=== PATIENT | male | born 1970 | race Asian ===

== ENCOUNTER 2019-06-24 21:34 | Emergency (ER) | payer SELFPAY ==
[~2019-06-24] VITALS: Ht 175.3 cm; Wt 98.6 kg
[2019-06-24] MEDS ORDERED: METF-960 PO (21:45)
[2019-06-24] MEDS ORDERED: SIMV-261 PO (21:45)
[2019-06-24] MEDS ORDERED: LISI-662 PO (21:45)
[2019-06-24 21:52] LABS: GLUCOSE,POINT OF CARE 106 MG/DL (70-110)
[2019-06-24 22:41] LABS: BASOPHILS % (AUTO) 0.3 % (0.0-2.0); EOSINOPHILS % (AUTO) 2.1 % (1.0-6.0); HEMATOCRIT 47.2 % (41-53); HEMOGLOBIN 16.6 g/dL (13.5-17.5); LYMPHOCYTES # (AUTO) 2.5 K/uL (1.0-4.8); MEAN CORPUSCULAR HEMOGLOBIN 30.8 pg (26.0-34.0); MEAN CORPUSCULAR VOLUME 88 fL (80-100); MONOCYTES # (AUTO) 0.8 K/uL (0.1-1.0); MONOCYTES % (AUTO) 7.7 % (2.0-9.0); NEUTROPHILS # (AUTO) 7.3 K/uL (1.8-7.7); NEUTROPHILS % (AUTO) 66.9 % (40.0-70.0); PLATELET COUNT (AUTO) 202 K/uL (150-450); RED BLOOD CELL COUNT(AUTO) 5.38 MIL/uL (4.50-5.90); RED CELL DISTRIBUTION WIDTH 13.4 % (11.5-14.5)
[2019-06-24 22:42] LABS: ANION GAP 9 mmol/L (8-16); CALCIUM, TOTAL 8.9 mg/dL (8.8-10.5); CARBON DIOXIDE 26 mmol/L (22-29); CHLORIDE 104 mmol/L (98-107); CREATININE 1.06 mg/dL (0.60-1.30); GLOMERULAR FILTR. RATE CALC > 60 mL/min (>60); GLUCOSE,RANDOM 106 mg/dL (70-110); POTASSIUM 3.4 mmol/L (3.5-5.1); SODIUM SERUM 139 mmol/L (136-145); UREA NITROGEN, BLOOD 16 mg/dL (7-18)
[2019-06-24] MEDS ORDERED: METOCLOPRAMIDE HCL 5 MG/ML 2 ML VIAL IVP ONE (22:45)
[2019-06-24] MEDS ORDERED: ACETAMINOPHEN 500 MG TABLET PO ONE (22:45)
[2019-06-24] MEDS ORDERED: DiphenhydrAMINE HCL 50 MG/ML VIAL IVP ONE (22:45)
[2019-06-24] MEDS ORDERED: SODIUM CHLORIDE 0.9% 1,000 ML IV ONE (22:45)
[2019-06-24] MEDS ORDERED: DEXAMETHASONE SOD PHOS 4 MG/ML 5 ML VIAL IVP ONE (22:45)
[2019-06-25 00:10] VITALS: BP 142/84
== END 2019-06-25 00:43 | disposition home or self-care (01) ==
LOC: EMS 21:35
DX: I10 Essential (primary) hypertension (principal); R51 Headache; E11.9 Type 2 diabetes mellitus without complications; F17.210 Nicotine dependence, cigarettes, uncomplicated; Z79.899 Other long term (current) drug therapy; Z79.84 Long term (current) use of oral hypoglycemic drugs
CPT/HCPCS: 36415; 80048; 82962; 85025; 96374; 96375; 99283; J1100; J1200; J2765; J7030

== ENCOUNTER 2020-10-28 09:57 | Inpatient (IN) | payer MEDICAID ==
[~2020-10-28] VITALS: Ht 175.3 cm; Wt 99.2 kg
[~2020-10-28 09:57] MED LIST: LISI-894 PO; METF-960 PO; SIMV-261 PO
[2020-10-28 10:51] LABS: COVID AG,FIA SOURCE NASOPHARYNGEAL
[2020-10-28 11:37] LABS: AMPHET/METH SCREEN,URINE POSITIVE (NEGATIVE); BARBITURATE SCREEN, URINE NEGATIVE (NEGATIVE); BENZODIAZEPINES SCREEN,URINE NEGATIVE (NEGATIVE); CANNABINOID SCREEN,URINE NEGATIVE (NEGATIVE); COCAINE SCREEN,URINE NEGATIVE (NEGATIVE); METHADONE SCREEN, URINE NEGATIVE (NEGATIVE); OPIATE SCREEN,URINE POSITIVE (NEGATIVE)
[2020-10-28 11:39] LABS: PHENCYCLIDINE SCREEN,URINE NEGATIVE (NEGATIVE)
[2020-10-28 11:54] LABS: BASOPHILS % (AUTO) 0.4 % (0.0-2.0); EOSINOPHILS % (AUTO) 1.8 % (1.0-6.0); HEMATOCRIT 42.8 % (41-53); HEMOGLOBIN 13.8 g/dL (13.5-17.5); LYMPHOCYTES # (AUTO) 1.3 K/uL (1.0-4.8); LYMPHOCYTES % (AUTO) 16.4 % (22.0-44.0); MEAN CORPUSCULAR HEMOGLOBIN 27.3 pg (26.0-34.0); MEAN CORPUSCULAR HGB CONC 32.3 G/dL (31.0-37.0); MEAN CORPUSCULAR VOLUME 85 fL (80-100); MONOCYTES # (AUTO) 0.7 K/uL (0.1-1.0); MONOCYTES % (AUTO) 8.2 % (2.0-9.0); NEUTROPHILS # (AUTO) 5.9 K/uL (1.8-7.7); NEUTROPHILS % (AUTO) 73.2 % (40.0-70.0); PLATELET COUNT (AUTO) 221 K/uL (150-450); RED BLOOD CELL COUNT(AUTO) 5.06 MIL/uL (4.50-5.90); RED CELL DISTRIBUTION WIDTH 14.9 % (11.5-14.5)
[2020-10-28 12:01] LABS: ANION GAP 11 mmol/L (8-16); CALCIUM, TOTAL 8.1 mg/dL (8.8-10.5); CARBON DIOXIDE 26 mmol/L (22-29); CHLORIDE 99 mmol/L (98-107); CREATININE 1.19 mg/dL (0.60-1.30); GLOMERULAR FILTR. RATE CALC > 60 mL/min (>60); GLUCOSE,RANDOM 137 mg/dL (70-110); POTASSIUM 3.2 mmol/L (3.5-5.1); SODIUM SERUM 136 mmol/L (136-145); UREA NITROGEN, BLOOD 19 mg/dL (7-18)
[2020-10-28 12:06] LABS: ALANINE AMINOTRANSFERASE 18 U/L (12-78); ALKALINE PHOSPHATASE 73 U/L (46-116); ASPARTATE AMINOTRANSFERASE 17 U/L (15-37); BILIRUBIN,TOTAL 0.4 mg/dL (0.1-1.0); TOTAL PROTEIN, SERUM 7.8 g/dL (6.4-8.2)
[2020-10-28] MEDS ORDERED: FURO-152 PO (12:12)
[2020-10-28] MEDS ORDERED: HYDR25TA2 PO (12:12)
[2020-10-28 12:16] LABS: B-TYPE NATRIURETIC PEPTIDE 999 pg/mL (0-100)
[2020-10-28] MEDS ORDERED: VANCOMYCIN HCL 1 GM/D5% WATER 200 ML IV ONE (12:45)
[2020-10-28] MEDS ORDERED: FUROSEMIDE 40 MG/4 ML VIAL IVP ONE (12:45)
[2020-10-28] MEDS ORDERED: POTASSIUM CHLORIDE 20 MEQ ER TABLET PO ONE (13:00)
[2020-10-28] MEDS ORDERED: CloNIDine HCL 0.1 MG TABLET PO ONE (13:45)
[2020-10-28] MEDS ORDERED: ACETAMINOPHEN 325 MG TABLET PO PRN (16:45)
[2020-10-28] MEDS ORDERED: MAGNESIUM HYDROXIDE SUSPENSION 30 ML UDCUP PO PRN (16:45)
[2020-10-28] MEDS ORDERED: BISACODYL 10 MG RECTAL RECTAL SUPPOSITORY PR PRN (16:45)
[2020-10-28] MEDS ORDERED: HYDROCODONE/ACETAMINOPHEN 5-325 MG TABLET PO PRN (16:45)
[2020-10-28] MEDS ORDERED: *CLINICAL-LEVOFLOXACIN ORAL DOSING CLINICAL ONE (16:45)
[2020-10-28] MEDS ORDERED: ZOLPIDEM TARTRATE 5 MG TABLET PO PRN (16:45)
[2020-10-28] MEDS ORDERED: MORPHINE SULFATE 2 MG/ML SYRINGE IVP PRN (16:45)
[2020-10-28] MEDS ORDERED: LEVOFLOXACIN 750 MG TABLET PO ONE (17:15)
[2020-10-28 21:54] VITALS: BP 173/116
[2020-10-28] MEDS: CARVEDILOL 6.25 MG TABLET PO SCH (21:55)
[2020-10-28] MEDS: DOCUSATE SODIUM 100 MG CAPSULE PO SCH (21:55)
[2020-10-28] MEDS: FUROSEMIDE 20 MG/2 ML VIAL IVP SCH (21:55)
[2020-10-28] MEDS: HEPARIN SODIUM,PORCINE 5,000 UNITS/ML VIAL SQ SCH (23:38)
[2020-10-29 04:59] VITALS: BP 135/93
[2020-10-29 06:27] LABS: BASOPHILS % (AUTO) 0.5 % (0.0-2.0); EOSINOPHILS % (AUTO) 2.9 % (1.0-6.0); HEMATOCRIT 45.3 % (41-53); HEMOGLOBIN 14.6 g/dL (13.5-17.5); LYMPHOCYTES # (AUTO) 1.5 K/uL (1.0-4.8); LYMPHOCYTES % (AUTO) 17.6 % (22.0-44.0); MEAN CORPUSCULAR HEMOGLOBIN 27.2 pg (26.0-34.0); MEAN CORPUSCULAR HGB CONC 32.3 G/dL (31.0-37.0); MEAN CORPUSCULAR VOLUME 84 fL (80-100); MONOCYTES # (AUTO) 0.8 K/uL (0.1-1.0); NEUTROPHILS # (AUTO) 5.8 K/uL (1.8-7.7); PLATELET COUNT (AUTO) 245 K/uL (150-450); RED BLOOD CELL COUNT(AUTO) 5.37 MIL/uL (4.50-5.90); RED CELL DISTRIBUTION WIDTH 14.8 % (11.5-14.5)
[2020-10-29 06:36] LABS: ANION GAP 10 mmol/L (8-16); CALCIUM, TOTAL 8.8 mg/dL (8.8-10.5); CARBON DIOXIDE 28 mmol/L (22-29); CHLORIDE 100 mmol/L (98-107); CREATININE 1.11 mg/dL (0.60-1.30); GLOMERULAR FILTR. RATE CALC > 60 mL/min (>60); GLUCOSE,RANDOM 100 mg/dL (70-110); POTASSIUM 3.4 mmol/L (3.5-5.1); SODIUM SERUM 138 mmol/L (136-145); UREA NITROGEN, BLOOD 21 mg/dL (7-18)
[2020-10-29 07:28] VITALS: BP 143/103
[2020-10-29] MEDS ORDERED: LISINOPRIL 5 MG TABLET PO SCH (09:00)
[2020-10-29] MEDS: HEPARIN SODIUM,PORCINE 5,000 UNITS/ML VIAL SQ SCH ×3 (10:48→23:34)
[2020-10-29] MEDS: FUROSEMIDE 20 MG/2 ML VIAL IVP SCH ×2 (10:49→20:17)
[2020-10-29] MEDS: DOCUSATE SODIUM 100 MG CAPSULE PO SCH ×2 (10:49→20:17)
[2020-10-29] MEDS: ASPIRIN 81 MG DR TABLET PO SCH (10:49)
[2020-10-29] MEDS: CARVEDILOL 6.25 MG TABLET PO SCH ×2 (10:49→20:16)
[2020-10-29] MEDS: LISINOPRIL 20 MG TABLET PO SCH (10:50)
[2020-10-29] MEDS: LEVOFLOXACIN 750 MG TABLET PO SCH (10:50)
[2020-10-29] MEDS: PANTOPRAZOLE SODIUM 40 MG DR TABLET PO SCH (10:50)
[2020-10-29 11:50] VITALS: BP 144/99
[2020-10-29 15:39] VITALS: BP 130/96
[2020-10-29] MEDS: CLINDAMYCIN HCL 300 MG CAPSULE PO SCH ×2 (15:49→23:33)
[2020-10-29] MEDS: ONDANSETRON HCL 4 MG/2 ML VIAL IVP PRN ×2 (17:16→23:34)
[2020-10-29 19:48] VITALS: BP 135/93
[2020-10-29 23:14] VITALS: BP 122/75
[2020-10-30 05:40] VITALS: BP 128/83
[2020-10-30 07:11] LABS: BASOPHILS % (AUTO) 0.4 % (0.0-2.0); EOSINOPHILS % (AUTO) 2.1 % (1.0-6.0); HEMATOCRIT 47.5 % (41-53); HEMOGLOBIN 15.4 g/dL (13.5-17.5); LYMPHOCYTES # (AUTO) 1.9 K/uL (1.0-4.8); LYMPHOCYTES % (AUTO) 25.1 % (22.0-44.0); MEAN CORPUSCULAR HGB CONC 32.4 G/dL (31.0-37.0); MEAN CORPUSCULAR VOLUME 84 fL (80-100); MONOCYTES # (AUTO) 0.7 K/uL (0.1-1.0); MONOCYTES % (AUTO) 9.8 % (2.0-9.0); NEUTROPHILS # (AUTO) 4.7 K/uL (1.8-7.7); NEUTROPHILS % (AUTO) 62.6 % (40.0-70.0); PLATELET COUNT (AUTO) 247 K/uL (150-450); RED BLOOD CELL COUNT(AUTO) 5.69 MIL/uL (4.50-5.90); RED CELL DISTRIBUTION WIDTH 14.9 % (11.5-14.5)
[2020-10-30 07:30] VITALS: BP 135/95
[2020-10-30] MEDS: CLINDAMYCIN HCL 300 MG CAPSULE PO SCH (07:52)
[2020-10-30] MEDS: ASPIRIN 81 MG DR TABLET PO SCH (07:52)
[2020-10-30] MEDS: LEVOFLOXACIN 750 MG TABLET PO SCH (07:53)
[2020-10-30] MEDS: FUROSEMIDE 20 MG/2 ML VIAL IVP SCH (07:53)
[2020-10-30] MEDS: DOCUSATE SODIUM 100 MG CAPSULE PO SCH (07:53)
[2020-10-30] MEDS: PANTOPRAZOLE SODIUM 40 MG DR TABLET PO SCH (07:53)
[2020-10-30] MEDS: CARVEDILOL 6.25 MG TABLET PO SCH (07:53)
[2020-10-30 07:59] LABS: CALCIUM, TOTAL 8.6 mg/dL (8.8-10.5); CREATININE 1.29 mg/dL (0.60-1.30); POTASSIUM 3.7 mmol/L (3.5-5.1)
[2020-10-30] MEDS: LISINOPRIL 20 MG TABLET PO SCH (08:23)
[2020-10-30] MEDS: HEPARIN SODIUM,PORCINE 5,000 UNITS/ML VIAL SQ SCH (08:24)
[2020-10-30 11:41] VITALS: BP 134/91
[2020-10-30] MEDS ORDERED: FURO-152 PO (12:45)
[2020-10-30] MEDS ORDERED: CLIN300C10 PO (12:45)
[2020-10-30] MEDS ORDERED: LISI-894 PO (12:45)
[2020-10-30] MEDS ORDERED: LEVO750T68 PO (12:45)
[2020-10-30] MEDS ORDERED: ASPI-1444 PO (12:45)
[2020-10-30] MEDS ORDERED: CARV6 PO (12:45)
== END 2020-10-30 13:45 | disposition home or self-care (01) | DRG 194 ==
LOC: EMS 10:04 → 5S 16:36
PROVIDERS: ADMIT Internal Medicine; ATTEND Internal Medicine
DX: I11.0 Hypertensive heart disease with heart failure (principal); L03.115 Cellulitis of right lower limb; L02.92 Furuncle, unspecified; E87.6 Hypokalemia; E11.9 Type 2 diabetes mellitus without complications; E78.5 Hyperlipidemia, unspecified; I50.21 Acute systolic (congestive) heart failure; F19.10 Other psychoactive substance abuse, uncomplicated; F17.210 Nicotine dependence, cigarettes, uncomplicated; Z20.822 Contact with and (suspected) exposure to COVID-19; L03.116 Cellulitis of left lower limb; Z91.14 Patient's other noncompliance with medication regimen; Z79.899 Other long term (current) drug therapy
CPT/HCPCS: 71045; 80048; 80053; 83880; 84484; 85025; 87040; 87426; 93005; 99285; A9575; J1644; J1940; J2405; J3370; 36415-L1; 36415-TC

== ENCOUNTER 2021-03-05 16:48 | Emergency (ER) | payer MEDICAID ==
[~2021-03-05] VITALS: Ht 175.3 cm; Wt 90.9 kg
[~2021-03-05 16:48] MED LIST changes: +ASPI-1444 PO; +CARV6 PO; +CLIN300C10 PO; +FURO-152 PO; +LEVO750T68 PO; -SIMV-261 PO
[2021-03-05] MEDS ORDERED: HYDR25TA2 PO (16:58)
[2021-03-05] MEDS ORDERED: 0.9% SODIUM CHLORIDE 10 ML SYRINGE IVP PRN (17:45)
[2021-03-05] MEDS ORDERED: SODIUM CHLORIDE 0.9% 2,750 ML IV ONE (17:45)
[2021-03-05] MEDS ORDERED: FURO40 PO (17:49)
[2021-03-05] MEDS ORDERED: LISI30TA4 PO (17:49)
[2021-03-05] MEDS ORDERED: IOHEXOL 350 MG/ML 150 ML VIAL ONE (18:03)
[2021-03-05] MEDS ORDERED: SODIUM CHLORIDE 0.9% 100 ML ONE (18:03)
[2021-03-05 20:08] LABS: BASOPHILS % (AUTO) 0.6 % (0.0-2.0); EOSINOPHILS % (AUTO) 0.5 % (1.0-6.0); HEMATOCRIT 47.6 % (41-53); HEMOGLOBIN 15.3 g/dL (13.5-17.5); LYMPHOCYTES # (AUTO) 1.7 K/uL (1.0-4.8); LYMPHOCYTES % (AUTO) 15.2 % (22.0-44.0); MEAN CORPUSCULAR HGB CONC 32.2 G/dL (31.0-37.0); MEAN CORPUSCULAR VOLUME 87 fL (80-100); MONOCYTES # (AUTO) 1.1 K/uL (0.1-1.0); MONOCYTES % (AUTO) 9.5 % (2.0-9.0); NEUTROPHILS # (AUTO) 8.4 K/uL (1.8-7.7); NEUTROPHILS % (AUTO) 74.2 % (40.0-70.0); PLATELET COUNT (AUTO) 223 K/uL (150-450); RED BLOOD CELL COUNT(AUTO) 5.46 MIL/uL (4.50-5.90); RED CELL DISTRIBUTION WIDTH 17.5 % (11.5-14.5)
[2021-03-05 20:19] LABS: PROTHROMBIN TIME 11.1 SEC (9.4-11.6)
[2021-03-05 20:29] LABS: ANION GAP 7 mmol/L (8-16); CALCIUM, TOTAL 8.9 mg/dL (8.8-10.5); CARBON DIOXIDE 29 mmol/L (22-29); CHLORIDE 102 mmol/L (98-107); CREATININE 0.98 mg/dL (0.60-1.30); GLOMERULAR FILTR. RATE CALC > 60 mL/min (>60); GLUCOSE,RANDOM 113 mg/dL (70-110); POTASSIUM 3.9 mmol/L (3.5-5.1); SODIUM SERUM 138 mmol/L (136-145); UREA NITROGEN, BLOOD 17 mg/dL (7-18)
[2021-03-05 20:36] LABS: B-TYPE NATRIURETIC PEPTIDE 718 pg/mL (0-100)
[2021-03-05 20:57] LABS: ALANINE AMINOTRANSFERASE 15 U/L (12-78); ALKALINE PHOSPHATASE 77 U/L (46-116); ASPARTATE AMINOTRANSFERASE 18 U/L (15-37); BILIRUBIN,TOTAL 0.9 mg/dL (0.1-1.0); CREATINE KINASE, TOTAL ONLY 77 U/L (39-308); LIPASE 62 U/L (73-393); TOTAL PROTEIN, SERUM 8.2 g/dL (6.4-8.2)
[2021-03-05 21:25] LABS: APPEARANCE,URINE CLEAR (CLEAR); GLUCOSE, URINE (UA) NEGATIVE (NEGATIVE); KETONES,URINE NEGATIVE (NEGATIVE); LEUKOCYTE ESTERASE ,URINE NEGATIVE (NEGATIVE); NITRATE,URINE NEGATIVE (NEGATIVE); OCCULT BLOOD,URINE NEGATIVE (NEGATIVE); PROTEIN,URINE POS 1+ (NEGATIVE)
[2021-03-05 21:26] LABS: BILIRUBIN,URINE PRELIM. POSITIVE (NEGATIVE)
[2021-03-05] MEDS ORDERED: CloNIDine HCL 0.1 MG TABLET PO ONE (21:45)
[2021-03-05 21:48] LABS: COVID AG,FIA SOURCE NASOPHARYNGEAL
[2021-03-06 00:12] VITALS: BP 136/78
== END 2021-03-06 00:13 | disposition home or self-care (01) ==
LOC: EMS 16:50
DX: M54.5 Low back pain (principal); F15.10 Other stimulant abuse, uncomplicated; F11.10 Opioid abuse, uncomplicated; I11.0 Hypertensive heart disease with heart failure; I50.9 Heart failure, unspecified; F17.210 Nicotine dependence, cigarettes, uncomplicated; Z20.822 Contact with and (suspected) exposure to COVID-19; Z90.89 Acquired absence of other organs; Z79.899 Other long term (current) drug therapy
CPT/HCPCS: 36415; 71045; 71275; 72132; 74175; 80053; 81003; 82550; 83605; 83690; 83880; 84484; 85025; 85610; 87040; 87426; 93005; 96360; 96361; 99285; A9575; G0480; J7030; J7050; Q9967

== ENCOUNTER 2021-08-27 19:50 | Inpatient (IN) | payer MEDICAID ==
[~2021-08-27] VITALS: Ht 175.3 cm; Wt 88.5 kg
[~2021-08-27 19:50] MED LIST changes: -ASPI-1444 PO; -CARV6 PO; -CLIN300C10 PO; -FURO-152 PO; +FURO40 PO; -LEVO750T68 PO; -LISI-894 PO; +LISI30TA4 PO; +LOSA-382 PO; -METF-960 PO; +METO-408 PO
[2021-08-27 21:29] LABS: BASOPHILS % (AUTO) 0.2 % (0.0-2.0); EOSINOPHILS % (AUTO) 1.5 % (1.0-6.0); HEMATOCRIT 44.7 % (41-53); HEMOGLOBIN 14.7 g/dL (13.5-17.5); LYMPHOCYTES # (AUTO) 1.1 K/uL (1.0-4.8); LYMPHOCYTES % (AUTO) 8.1 % (22.0-44.0); MEAN CORPUSCULAR HEMOGLOBIN 28.5 pg (26.0-34.0); MEAN CORPUSCULAR HGB CONC 32.8 G/dL (31.0-37.0); MEAN CORPUSCULAR VOLUME 87 fL (80-100); MONOCYTES # (AUTO) 0.9 K/uL (0.1-1.0); MONOCYTES % (AUTO) 6.5 % (2.0-9.0); NEUTROPHILS # (AUTO) 11.5 K/uL (1.8-7.7); NEUTROPHILS % (AUTO) 83.7 % (40.0-70.0); PLATELET COUNT (AUTO) 214 K/uL (150-450); RED BLOOD CELL COUNT(AUTO) 5.14 MIL/uL (4.50-5.90); RED CELL DISTRIBUTION WIDTH 15.9 % (11.5-14.5)
[2021-08-27 21:40] LABS: INR 1.1 (0.9-1.1)
[2021-08-27 21:44] LABS: ALANINE AMINOTRANSFERASE 23 U/L (12-78); ALBUMIN 2.3 g/dL (3.4-5.0); ALKALINE PHOSPHATASE 90 U/L (46-116); ANION GAP 8 mmol/L (8-16); ASPARTATE AMINOTRANSFERASE 20 U/L (15-37); BILIRUBIN,TOTAL 0.7 mg/dL (0.1-1.0); CALCIUM, TOTAL 8.4 mg/dL (8.8-10.5); CARBON DIOXIDE 31 mmol/L (22-29); CHLORIDE 99 mmol/L (98-107); CREATININE 1.32 mg/dL (0.60-1.30); GLOMERULAR FILTR. RATE CALC 57 mL/min (>60); GLUCOSE,RANDOM 125 mg/dL (70-110); LIPASE 61 U/L (73-393); SODIUM SERUM 138 mmol/L (136-145); TOTAL PROTEIN, SERUM 8.5 g/dL (6.4-8.2); UREA NITROGEN, BLOOD 21 mg/dL (7-18)
[2021-08-27] MEDS ORDERED: SODIUM CHLORIDE 0.9% 2,400 ML IV ONE (21:45)
[2021-08-27 21:46] LABS: LACTIC ACID 1.6 mmol/L (0.4-2.0)
[2021-08-27 21:47] LABS: COVID AG,FIA SOURCE NASOPHARYNGEAL
[2021-08-27 21:57] LABS: APPEARANCE,URINE CLEAR (CLEAR); BILIRUBIN,URINE NEGATIVE (NEGATIVE); GLUCOSE, URINE (UA) NEGATIVE (NEGATIVE); KETONES,URINE NEGATIVE (NEGATIVE); LEUKOCYTE ESTERASE ,URINE NEGATIVE (NEGATIVE); NITRATE,URINE NEGATIVE (NEGATIVE); OCCULT BLOOD,URINE TRACE (NEGATIVE); PROTEIN,URINE NEGATIVE (NEGATIVE)
[2021-08-27] MEDS ORDERED: SODIUM CHLORIDE 0.9% 1,000 ML IV ONE (22:00)
[2021-08-27] MEDS ORDERED: ONDANSETRON HCL 4 MG/2 ML VIAL IVP PRN (22:00)
[2021-08-27] MEDS ORDERED: CefTRIAXone 1 GM/DEXTROSE 50 ML IV SCH (22:00)
[2021-08-27] MEDS ORDERED: POTASSIUM CHLORIDE 10% 40 MEQ/30 ML LIQUID UDCUP PO ONE (22:00)
[2021-08-27] MEDS ORDERED: MORPHINE SULFATE 2 MG/ML SYRINGE IVP PRN (22:00)
[2021-08-27] MEDS ORDERED: ACETAMINOPHEN 325 MG TABLET PO PRN (22:00)
[2021-08-27 22:03] LABS: AMPHET/METH SCREEN,URINE POSITIVE (NEGATIVE); BARBITURATE SCREEN, URINE NEGATIVE (NEGATIVE); BENZODIAZEPINES SCREEN,URINE NEGATIVE (NEGATIVE); CANNABINOID SCREEN,URINE NEGATIVE (NEGATIVE); COCAINE SCREEN,URINE NEGATIVE (NEGATIVE); METHADONE SCREEN, URINE NEGATIVE (NEGATIVE); OPIATE SCREEN,URINE POSITIVE (NEGATIVE); PHENCYCLIDINE SCREEN,URINE NEGATIVE (NEGATIVE)
[2021-08-27 22:07] LABS: BACTERIA,URINE Rare /HPF (None Seen); SQUAMOUS EPITHELIAL CELL,UR Rare /LPF (None Seen); WBC,URINE 0-2 /HPF (0-5)
[2021-08-27] MEDS ORDERED: VANCOMYCIN HCL 1.5 GM in DEXTROSE 5%-WATER 250 ML IV ONE (22:30)
[2021-08-27] MEDS ORDERED: IOHEXOL 350 MG/ML 150 ML VIAL ONE (23:11)
[2021-08-27] MEDS ORDERED: CLINDAMYCIN 900 MG/D5% WATER 50 ML IV ONE (23:30)
[2021-08-28 00:54] VITALS: BP 131/79
[2021-08-28 00:56] VITALS: BP 131/79
[2021-08-28] MEDS ORDERED: INFLUENZA VIRUS VACCINE QVS 2021-22 (6MO+)/PF 60 MCG/0.5 ML SYRINGE IM. ONE (01:45)
[2021-08-28] MEDS: HEPARIN SODIUM,PORCINE 5,000 UNITS/ML VIAL SQ SCH ×3 (02:22→16:07)
[2021-08-28 04:00] VITALS: BP 135/71
[2021-08-28 09:28] VITALS: BP 127/84
[2021-08-28] MEDS: VANCOMYCIN HCL 1 GM/D5% WATER 200 ML IV SCH ×2 (12:59→20:19)
[2021-08-28] MEDS ORDERED: POTASSIUM CHLORIDE 8 MEQ ER TABLET PO ONE (13:00)
[2021-08-28] MEDS: FUROSEMIDE 40 MG/4 ML VIAL IVP SCH ×2 (16:06→20:19)
[2021-08-28 17:00] VITALS: BP 133/80
[2021-08-28] MEDS: PIPERACILLIN/TAZO 3.375 GM/D5W 50 ML IV SCH (18:52)
[2021-08-28 19:25] VITALS: BP 145/97
[2021-08-28] MEDS: CARVEDILOL 3.125 MG TABLET PO SCH (20:19)
[2021-08-28] MEDS: SILVER SULFADIAZINE 1% 25 GM CREAM TP SCH (20:19)
[2021-08-29] MEDS: HEPARIN SODIUM,PORCINE 5,000 UNITS/ML VIAL SQ SCH ×3 (00:30→17:09)
[2021-08-29 01:18] VITALS: BP 149/87
[2021-08-29] MEDS: PIPERACILLIN/TAZO 3.375 GM/D5W 50 ML IV SCH ×3 (02:00→17:11)
[2021-08-29 05:28] VITALS: BP 152/91
[2021-08-29 07:15] VITALS: BP 157/100
[2021-08-29] MEDS: LOSARTAN POTASSIUM 25 MG TABLET PO SCH (09:02)
[2021-08-29] MEDS: VANCOMYCIN HCL 1 GM/D5% WATER 200 ML IV SCH ×2 (09:03→20:40)
[2021-08-29] MEDS: FUROSEMIDE 40 MG/4 ML VIAL IVP SCH ×2 (09:03→20:40)
[2021-08-29] MEDS: CARVEDILOL 3.125 MG TABLET PO SCH (09:03)
[2021-08-29 11:35] VITALS: BP 157/96
[2021-08-29 15:33] VITALS: BP 121/93
[2021-08-29] MEDS: SILVER SULFADIAZINE 1% 25 GM CREAM TP SCH ×2 (17:08→20:41)
[2021-08-29 20:38] VITALS: BP 125/67
[2021-08-29] MEDS: CARVEDILOL 6.25 MG TABLET PO SCH (20:41)
[2021-08-30] MEDS: HEPARIN SODIUM,PORCINE 5,000 UNITS/ML VIAL SQ SCH ×2 (00:09→09:39)
[2021-08-30] MEDS: PIPERACILLIN/TAZO 3.375 GM/D5W 50 ML IV SCH ×2 (00:10→11:57)
[2021-08-30 00:25] VITALS: BP 114/72
[2021-08-30 04:12] VITALS: BP 117/76
[2021-08-30] MEDS ORDERED: PNEUMOCOCCAL VACCINE POLYVALENT 0.5 ML VIAL [PPSV23] IM. ONE (05:15)
[2021-08-30] MEDS ORDERED: INFLUENZA VIRUS VACCINE QVS 2021-22 (6MO+)/PF 60 MCG/0.5 ML SYRINGE IM. ONE (05:15)
[2021-08-30 06:01] LABS: BASOPHILS % (AUTO) 0.5 % (0.0-2.0); EOSINOPHILS % (AUTO) 2.6 % (1.0-6.0); HEMATOCRIT 42.6 % (41-53); LYMPHOCYTES # (AUTO) 1.5 K/uL (1.0-4.8); LYMPHOCYTES % (AUTO) 20.1 % (22.0-44.0); MEAN CORPUSCULAR HEMOGLOBIN 28.6 pg (26.0-34.0); MEAN CORPUSCULAR HGB CONC 32.9 G/dL (31.0-37.0); MEAN CORPUSCULAR VOLUME 87 fL (80-100); MONOCYTES # (AUTO) 0.8 K/uL (0.1-1.0); MONOCYTES % (AUTO) 11.1 % (2.0-9.0); NEUTROPHILS # (AUTO) 4.8 K/uL (1.8-7.7); NEUTROPHILS % (AUTO) 65.7 % (40.0-70.0); PLATELET COUNT (AUTO) 235 K/uL (150-450); RED BLOOD CELL COUNT(AUTO) 4.91 MIL/uL (4.50-5.90); RED CELL DISTRIBUTION WIDTH 15.8 % (11.5-14.5)
[2021-08-30 06:30] LABS: CREATININE 1.35 mg/dL (0.60-1.30); VANCOMYCIN,RANDOM 23.6 mcg/mL (25.0-50.0)
[2021-08-30 08:13] VITALS: BP 131/97
[2021-08-30] MEDS: CARVEDILOL 6.25 MG TABLET PO SCH (09:37)
[2021-08-30] MEDS: LOSARTAN POTASSIUM 25 MG TABLET PO SCH (09:38)
[2021-08-30] MEDS: FUROSEMIDE 40 MG/4 ML VIAL IVP SCH (09:38)
[2021-08-30] MEDS: VANCOMYCIN HCL 1 GM/D5% WATER 200 ML IV SCH (09:38)
[2021-08-30] MEDS: SILVER SULFADIAZINE 1% 25 GM CREAM TP SCH (09:39)
[2021-08-30] MEDS ORDERED: FURO40 PO (10:47)
[2021-08-30] MEDS ORDERED: CLIN300C3 PO (10:47)
[2021-08-30] MEDS ORDERED: CARV6 PO (10:47)
[2021-08-30] MEDS ORDERED: CEPH500C3 PO (10:47)
[2021-08-30] MEDS ORDERED: LOSA25TA2 PO (10:47)
[2021-08-30] MEDS ORDERED: POTA-92 PO (10:47)
[2021-08-30 11:40] VITALS: BP 126/95
[2021-08-30] MEDS ORDERED: FUROSEMIDE 40 MG TABLET PO SCH (21:00)
== END 2021-08-30 15:45 | disposition home or self-care (01) | DRG 812 ==
LOC: EMS 19:57 → 5N 21:53
PROVIDERS: ADMIT Internal Medicine; ATTEND Internal Medicine
DX: T43.621A Poisoning by amphetamines, accidental (unintentional), initial encounter (principal); N17.0 Acute kidney failure with tubular necrosis; I50.43 Acute on chronic combined systolic (congestive) and diastolic (congestive) heart failure; L03.115 Cellulitis of right lower limb; I42.9 Cardiomyopathy, unspecified; S81.801A Unspecified open wound, right lower leg, initial encounter; I11.0 Hypertensive heart disease with heart failure; Z20.822 Contact with and (suspected) exposure to COVID-19; F17.210 Nicotine dependence, cigarettes, uncomplicated; E11.9 Type 2 diabetes mellitus without complications; F15.10 Other stimulant abuse, uncomplicated; I87.8 Other specified disorders of veins; I08.1 Rheumatic disorders of both mitral and tricuspid valves; L53.9 Erythematous condition, unspecified; X58.XXXA Exposure to other specified factors, initial encounter; Z90.49 Acquired absence of other specified parts of digestive tract; Z71.6 Tobacco abuse counseling; Y93.89 Activity, other specified; Y92.89 Other specified places as the place of occurrence of the external cause; Y99.8 Other external cause status
CPT/HCPCS: 71045; 73701; 80048; 80053; 80202; 81001; 83605; 83690; 84484; 85025; 85610; 85730; 87040; 87070; 87205; 93005; 93306; 93971; 99291; G0480; J0696; J1644; J1940; J2543; J3370; J3490; J7030; J7060; Q9967; 36415-L1; 36415-TC

== ENCOUNTER 2021-12-19 14:45 | Emergency (ER) | payer MEDICAID ==
[~2021-12-19] VITALS: Ht 167.6 cm; Wt 72.7 kg
[~2021-12-19 14:45] MED LIST changes: +CARV6 PO; +CEPH-558 PO; +CLIN300C58 PO; -LISI30TA4 PO; -LOSA-382 PO; +LOSA25TA2 PO; -METO-408 PO; +POTA-92 PO
[2021-12-19 14:56] VITALS: BP 122/85
[2021-12-19] MEDS ORDERED: DiphenhydrAMINE HCL 50 MG/ML VIAL IM ONE (15:30)
[2021-12-19] MEDS ORDERED: DIPH25TA51 PO (15:32)
== END 2021-12-19 15:53 | disposition home or self-care (01) ==
LOC: EMS 14:45
DX: T63.441A Toxic effect of venom of bees, accidental (unintentional), initial encounter (principal); I11.0 Hypertensive heart disease with heart failure; I50.9 Heart failure, unspecified; E11.9 Type 2 diabetes mellitus without complications; F11.90 Opioid use, unspecified, uncomplicated; F15.90 Other stimulant use, unspecified, uncomplicated; F17.210 Nicotine dependence, cigarettes, uncomplicated; Z79.899 Other long term (current) drug therapy; Y92.89 Other specified places as the place of occurrence of the external cause
CPT/HCPCS: 82962; 96372; 99283; J1200

== ENCOUNTER 2022-02-07 15:05 | Emergency (ER) | payer MEDICAID ==
[~2022-02-07] VITALS: Ht 175.3 cm; Wt 90.9 kg
[~2022-02-07 15:05] MED LIST changes: +DIPH25TA51 PO
[2022-02-07] MEDS ORDERED: METF-81 PO (15:14)
[2022-02-07] MEDS ORDERED: FURO20 PO (15:14)
[2022-02-07] MEDS ORDERED: METH5SOL3 PO (15:14)
[2022-02-07] MEDS ORDERED: FUROSEMIDE 20 MG TABLET PO ONE (15:30)
[2022-02-07 16:16] LABS: CREATININE 1.58 mg/dL (0.60-1.30); POTASSIUM 3.8 mmol/L (3.5-5.1)
[2022-02-07 16:21] LABS: ALBUMIN 2.9 g/dL (3.4-5.0); BILIRUBIN,TOTAL 0.6 mg/dL (0.1-1.0); TOTAL PROTEIN, SERUM 7.8 g/dL (6.4-8.2)
[2022-02-07 16:35] LABS: BASOPHILS % (AUTO) 0.6 % (0.0-2.0); EOSINOPHILS % (AUTO) 2.6 % (1.0-6.0); HEMATOCRIT 42.6 % (41-53); HEMOGLOBIN 13.9 g/dL (13.5-17.5); LYMPHOCYTES # (AUTO) 1.7 K/uL (1.0-4.8); LYMPHOCYTES % (AUTO) 28.5 % (22.0-44.0); MEAN CORPUSCULAR HEMOGLOBIN 29.1 pg (26.0-34.0); MEAN CORPUSCULAR HGB CONC 32.6 G/dL (31.0-37.0); MEAN CORPUSCULAR VOLUME 89 fL (80-100); MONOCYTES # (AUTO) 0.7 K/uL (0.1-1.0); MONOCYTES % (AUTO) 11.9 % (2.0-9.0); NEUTROPHILS # (AUTO) 3.4 K/uL (1.8-7.7); NEUTROPHILS % (AUTO) 56.4 % (40.0-70.0); PLATELET COUNT (AUTO) 167 K/uL (150-450); RED BLOOD CELL COUNT(AUTO) 4.78 MIL/uL (4.50-5.90); RED CELL DISTRIBUTION WIDTH 15.5 % (11.5-14.5)
[2022-02-07] MEDS ORDERED: FURO40 PO (17:26)
[2022-02-07 17:37] VITALS: BP 125/92
== END 2022-02-07 18:01 | disposition home or self-care (01) ==
LOC: EMS 15:06
DX: I11.0 Hypertensive heart disease with heart failure (principal); I50.9 Heart failure, unspecified; E11.9 Type 2 diabetes mellitus without complications; F17.210 Nicotine dependence, cigarettes, uncomplicated; F11.90 Opioid use, unspecified, uncomplicated; F15.90 Other stimulant use, unspecified, uncomplicated; Z87.19 Personal history of other diseases of the digestive system; Z90.49 Acquired absence of other specified parts of digestive tract
CPT/HCPCS: 71045; 80053; 83880; 84484; 85025; 93005; 99285; 36415-L1; 36415-TC